=== PATIENT | female | born 1950 | race Caucasian/White ===

== ENCOUNTER 2021-05-23 00:09 | Observation (INO) | payer MEDICARE ==
[~2021-05-23] VITALS: Ht 152.4 cm; Wt 45.5 kg
--- OUTSIDE RECORDS SUMMARY | 2021-05-23 00:12 | XMS ---
PreManage Notification: GALEN CHO Security Order Entry Administrator Events No recent Security Events currently on file [facility] There are no care providers on record at this time. Pedro has no Care Guidelines for this patient. [place] VISIT COUNT (12 MO.) 1 TERESA Jeff TOTAL 1 NOTE: Visits indicate total known visits. ED/UCC VISIT TRACKING (12 MO.) 05/23/2021 00:10 TERESA [facility] [place] TYPE: Emergency COMPLAINT: - BLOOD IN STOOL INPATIENT VISIT TRACKING (12 MO.) No inpatient visits to display in this time frame [email or web address]
[2021-05-23] MEDS ORDERED: ZOLPIDEM TARTRA10 MG PO (00:44)
--- NOTE | 2021-05-23 07:05 | NUR ---
[facility] pt able to ambulate from strcher to bed with minimal asistance. vss completed. admission completed. iv infusing per order. discussed plan of care with pt, all questions answered. pt on tele #9, mouth swabs provided. call light in reach.
--- NOTE | 2021-05-23 07:35 | NUR ---
Report received from Diana CARCAMO and Meghan CARCAMO. Pt resting in bed, awakens to voice, IVF infusing WNL. Pt states no needs at this time,no c/o pain. Will continue plan of care.
--- NOTE | 2021-05-23 08:12 | NUR ---
PT AWAKE IN ROOM. PT IS INDEPENDENT TO GET TO THE BATHROOM. WARM CLOTH GIVEN FOR FACE. WHITE BOARD UPDATED. CALL LIGHT WITHIN REACH. NO FURTHER NEEDS AT THIS TIME.
--- NOTE | 2021-05-23 09:23 | NUR ---
PT RESTING IN BED. PT SAYS APROX EVERY 30-40 SHE HAS "PAIN IN HER LOWER GUT THAT LASTS ABOUT 2 MINUTES." PT ALSO SAYS HER HANDS ARE SWELLING. DONA ZAMUDIO NOTIFIED. CALL LIGHT WITHIN REACH. NO FURTHER NEEDS AT THIS TIME.
--- NOTE | 2021-05-23 09:30 | NUR ---
It was my pleasure to meet with Brittany this morning and discuss her patient care and plan of care. Brittany shared with me that she is very happy with her care here at the hospital. She was admitted through the emergency department, and said that her care was "really good" in the ED. Brittany does state that she is having some intermittent pain adding that "it only lasts a couple of minutes so I am not taking pain meds." She does state that the nurses have offered pain medications but at this time she is refusing per her admission. She feels like she can "just work through it." Brittany also asked about her plan of care, she is currently NPO. I did explain to her that Dr. Mckinley had been consulted per our rounding report this morning. I also explained that we cannot at this time tell her when Dr. Mckinley will be able to come in and consult but that he was aware of her as was Dr. Chavez per our rounding report this morning. Brittany expressed appreciation for the information shared and denied other questions or concerns at this time. Again, she said that she was "very happy" with her care.
--- NOTE | 2021-05-23 09:38 | NUR ---
PATIENT UP TO BATHROOM TO BM, SMALL NIA RED LOOS STOOL NOTED. PATIENT INDICATED THAT SHE HAD 8/10 PAIN CRAMPS WITH BM THAT RESOLVED AFTER BM. PATIENT DENIED WANTING MORPHINE FOR PAIN.
--- NOTE | 2021-05-23 09:55 | NUR ---
Orders for stool sample to be collected, hat in toilet and sign in room, pt notified. IVF infusing WNL. Pt states that she has not slept in >24 hours, blinds closed and allowed to rest undisturbed at this time.
--- NOTE | 2021-05-23 12:05 | NUR ---
Medications administered, patient ambulates SBA to bathroom for void, no stool at this time, small drops of michelle red blood noted in toilet. IVF infusing WNL. She reports no pain or nausea at this time, intermittent ABD cramping.
--- NOTE | 2021-05-23 13:38 | NUR ---
STAFF INFORMED THAT PT DID NOT WANT TO BE DISTURBED AT THIS TIME. WILL FOLLOW
--- NOTE | 2021-05-23 13:50 | NUR ---
PT AWAKE IN BED. BLINDS OPENED, PT IS INDEPENDENT TO THE BATHROOM AND BACK TO BED. THIS STOVE REFINISHER GOT PT GREEN JELLO AND VEGGIE BROTH. CALL LIGHT WITHIN REACH. NO FURTHER NEEDS AT THIS TIME.
--- NOTE | 2021-05-23 13:54 | NUR ---
Pt tolerating clear liquid diet. Saline locked. Heat pack provided for ABD cramps
[2021-05-23] MEDS ORDERED: CALCIUM 500 +1 EAC4 NG (15:00)
[2021-05-23] MEDS ORDERED: DAILY VALUE1 EACH PO (15:00)
[2021-05-23] MEDS ORDERED: SUDOGEST30 MG PO (15:00)
[2021-05-23] MEDS ORDERED: VITAMIN C500 M1 PO (15:01)
--- NOTE | 2021-05-23 15:01 | NUR ---
MED REC COMPLETE
--- NOTE | 2021-05-23 17:42 | NUR ---
Attempted to see pt x2. Note on door, stating no visitor except for Will see pt tomorrow.
--- NOTE | 2021-05-23 18:05 | NUR ---
PT AWAKE IN BED WITH AT BEDSIDE. THIS CADDY BROUGHT PT JELLO. PT REFUSED SCD'S. RN LIZZ NOTIFIED. NO FURTHER NEEDS AT THIS TIME.
--- NOTE | 2021-05-23 19:00 | NUR ---
IN TO SEE PT. PT ALERT AND AWAKE, AT BEDSIDE. PT UPDATED ON PLAN OF CARE. NO NEEDS OR REQUEST. CALL LIGHT IN REACH.
--- NOTE | 2021-05-23 21:47 | NUR ---
IN TO SEE PT, MEDICATIONS AND ASSESSMENT DSDUE. PT ALERT AND ORIENTED X 3. PT REPORTS 5/10 BARNES, GIVEN PRN 650MG TYLENOL PER ORDER. I AND O'S COMPLETED. VS COMPLETED. UPDATED ON PLAN OF CARE. NO OTHER NEEDS OR REQUEST AT THIS TIME. PT UP TO USE RESTROOM AND BACK TO BED. NORMAL SINUS RHYTHM NOTED HR 80. NO SOB NOTED. DENIES NAUSEA, VOMITING AND DIARHHEA. CALL LIGHT IN REACH.
--- NOTE | 2021-05-23 23:14 | NUR ---
IN TO SEE PT. IV FLUIDS STARTED. BOWEL PREP STARTED. CONSENT REVIEWED WITH PT AND COMPLETED. NO ADDITIONAL QUESTIONS. BSC PLACED NEXT TO BED. PT REPORTS PAIN 5/10 TO HEAD. PT EDUCATION PROVIDED REGARDING BOWEL PREP, PT VERBALIZED UNDERSTANDING. NO OTHER MEEDS OR REQUESTS AT THIS TIME. CALL LIGHT IN REACH.
--- NOTE | 2021-05-24 00:53 | NUR ---
ASSUMED CARE OF PATIENT. [place] [facility] [place] WAS ABLE TO VOID. PATIENT HAS TAKEN 1/2 OF ORDERED BOWEL PREP. NO BM NOTED AT THIS TIME. PATIENT IS IN BED RESTING. PATIENT DENIES ANY NEEDS. CALL LIGHT IN REACH. IV INFUSING PER ORDER.
--- NOTE | 2021-05-24 01:24 | NUR ---
PATIENT ASSISTED TO THE BSC. PATIENT ABLE TO HAVE LOOSE BM. STOOL SAMPLE SENT TO THE PER ORDER. PATIENT ALSO ABLE TO VOID. PATIENT IS BACK IN BED RESTING. PATIENT DENIES ANY FURTHER NEEDS. CALL LIGHT IN REACH.
--- NOTE | 2021-05-24 02:16 | NUR ---
PATIENT ASSISTED TO THE BSC. PATIENT WAS ABLE TO HAVE LOOSE BM WITH SEDIMENT NOTED, AND IS STILL DARK IN COLOR. PATIENT IS BACK IN BED RESTING. PATIENT HAD EMESIS. PATIENT GIVEN PRN ZOFRAN PER ORDER. PATIENT PROVIDED WITH ICE PACK FOR NECK AND COOL RAG FOR FOREHEAD. PATIENT DENIES ANY FURTHER NEEDS. CALL LIGHT IN REACH.
--- NOTE | 2021-05-24 02:50 | NUR ---
ANSWERED CALL LIGHT. EMPTIED THE BUCKET. DARK WATERY STOOL WITH SOME PARTICLES.
--- NOTE | 2021-05-24 04:12 | NUR ---
PATIENTS SCHEDULED MEDICATIONS GIVEN PER ORDER. PATIENT CONTINUES TO DRINK BOWEL PREP. PATIENT REPORTS A HEADACHE AND THE PAIN IS 5/10. PATIENT GIVEN PRN TYLENOL PER ORDER. PATIENT UP TO BSC. PATIENT WILL CALL AFTER USE OF THE COMMODE. NO FURTHER NEEDS NOTED. CALL LIGHT IN REACH.
--- NOTE | 2021-05-24 05:04 | NUR ---
PATIENT UP TO THE BSC. PATIENT HAD LOOSE BM. PATIENTS BM IS MANAGER INSURANCE IN COLOR SEDIMENT NOTED. PATIENT IS BACK IN BED RESTING. PATIENT REPORTS AN IMPROVEMENT IN HEADACHE. SCHEDULED MEDICATION GIVEN PER ORDER. VITALS TAKEN AND RECORDED. INTAKE AND OUTPUT RECORDED. PATIENT DENIES ANY NEEDS. CALL LIGHT IN REACH.
--- NOTE | 2021-05-24 06:21 | NUR ---
PATIENT UP TO THE BR. PATIENT HAD LOOSE LIQUID BOWEL. BOWEL IS LIGHT BROWN, AND SCANT SEDIMENT NOTED. PATIENT IS BACK IN BED RESTING. PATIENT DENIES ANY NEEDS. CALL LIGHT IN REAC.H
--- NOTE | 2021-05-24 07:37 | NUR ---
BEDSIDE REPORT FROM DEMARCUS CARCAMO, PT ALERT AND ORIETNED, SHE WAS JUST BACK TO BED AFTER BM, NO REQUESTS, REAL ESTATE ASSESSOR IN TO REPORT SURGERY CALL TO INFORM THAT THEY WILL COME TO GET PT AT 0800. PT CALLING HER .
--- NOTE | 2021-05-24 09:52 | NUR ---
05/24/21 0952 Bev Goodwin 0927 PT ARRIVED IN PACU SLEEPY. ABD SOFT. 0945 TAKING SIPS OF WATER, THEN FALLS BACK TO SLEEP. 0950 DR AT BEDSIDE. ALL QUESTIONS ANSWERED.
--- NOTE | 2021-05-24 10:08 | CONS ---
[facility] [address], [place] [address] Signed DATE OF CONSULTATION: 05/23/2021 REQUESTING PHYSICIAN: Armando Chavez MD. CURRENT HOSPITALIST PHYSICIAN: Dr. Fischer. PROBLEM: Bloody diarrhea, inflammatory changes extending from splenic flexure to rectum on CT. HISTORY OF PRESENT ILLNESS: This 70-year-old white woman was admitted to the hospital at about midnight last night having presented with complaints of significant rectal bleeding and left-sided abdominal cramping pain. A CT scan was performed which showed findings suggestive of colitis in the left colon. Her admission was undertaken by the hospitalist, Dr. Chavez. C difficile cultures were hoping to be obtained but have not yet been obtained. She has not had profound blood per rectum. Given the findings, concern was maintained for possible inflammatory bowel disease and she was started on steroids, currently taking prednisone 40 mg p.o. daily. She does not have any IV fluids running at this time. She has been allowed to have liquids. She has had no nausea or vomiting. She denies any further serious diarrhea problems. LABORATORY STUDIES: Her admission lab study showed a hematocrit of 36.6, subsequently 37.9 and originally 38.7. Her platelet count is normal at 203,000. Electrolytes normal. Glucose 119, globulin elevated at 3.7. Her coag studies are normal with an INR of 1.03. PTT of 26.4. Urinalysis essentially normal and COVID serology is uncertain at this time. She is negative for coronavirus inflammatory type B or A and RSV. REVIEW OF SYSTEMS: She has far less abdominal pain essentially and has resolved. She has had no further bleeding. She denies any shortness of breath or chest pain. PHYSICAL EXAMINATION: GENERAL: Pleasant white woman who looks to be in no acute distress. HEENT: Mucous membranes are quite dry, however. Trachea is midline. CHEST: Clear. HEART: Regular without murmur. ABDOMEN: Scaphoid and nondistended. Palpation throughout shows no sign of focal tenderness, mass or ascites. Electronically Signed By: PEPE MOSS MD 05/24/21 1008 PATIENT NAME: GALEN CHO CONSULTATION DATE OF : 54 REPORT #: [id number] PHYSICIAN: PEPE MOSS MD PCP: ANY LANZA MD REPORT IS CONFIDENTIAL AND NOT TO BE RELEASED WITHOUT AUTHORIZATION [facility] [address] [place], [place] [address] Signed EXTREMITIES: Show no clubbing, cyanosis, or edema. VITAL SIGNS: Show temperature is 97.8, pulse was 87, blood pressure 111/68, O2 saturation is 97% on room air. ASSESSMENT: I reviewed the CT scan as well as the radiology interpretation. Most likely this represents ischemic colitis based on its distribution and so on. I would recommend a bowel prep tonight of MiraLAX and colonoscopy tomorrow. I am mindful that inflammatory bowel disease may be the underlying source of her problem though I think it is unlikely; similarly, the possibility of C difficile or other abnormalities may be present, but I would not expect C difficile colitis to be restricted to the splenic flexure and left colon proper. The risks of bleeding, infection, and perforation related to colonoscopy was discussed with her. She understands and wished to proceed. It is notable that she underwent colonoscopy by me at least 10 years ago based on what we can remember together. Review of old record so far show that I did perform a colonoscopy on her on January 10, 2007, 14 years ago, which confirmed only a cystocele and a rectocele. The patient does describe repair of the cystocele and rectocele in the past, although she does not feel normal per se. She is free of incontinence. MD YI Bettencourt/DOYLEL /[id number] cc: MD Ariane Yuen MD Dr. Deborah Woodbury Kelly Dean Pridgen, MD Electronically Signed By: PEPE MOSS MD 05/24/21 1008 PATIENT NAME: GALEN CHO CONSULTATION DATE OF : 54 REPORT #: [id number] PHYSICIAN: PEPE MOSS MD PCP: ANY LANZA MD REPORT IS CONFIDENTIAL AND NOT TO BE RELEASED WITHOUT AUTHORIZATION [address] [address] Signed Copies: ARMANDO CHAVEZ CYNTHIA MD PRIDGEN, KELLY DEAN MD ~ Electronically Signed By: PEPE MOSS MD 05/24/21 1008 PATIENT NAME: GALEN CHO GENEVIEVE CONSULTATION DATE OF : 54 REPORT #: [id number] PHYSICIAN: PEPE MOSS MD PCP: ANY LANZA MD REPORT IS CONFIDENTIAL AND NOT TO BE RELEASED WITHOUT AUTHORIZATION
--- NOTE | 2021-05-24 10:25 | NUR ---
PT BACK TO PROCEDURE TO ROOM 112 AT THIS TIME, BEDSIDE REPORT FROM ANA CARCAMOMOLD ENGRAVER DEPT., PT ALERT AND ORIENTED NO CONCERNS, SHE VERBALIZED NO PAIN, NO NAUSEA. SHE WANTS TO DISCHARGE JENNIE.
--- NOTE | 2021-05-24 10:45 | NUR ---
Spoke with pt and she states she lives in a 1 story home with her spouse. She denies needs and denies needing help. Spouse will help her if needed. Pt states she is feeling much better. She drives and spouse will grocery shop and cook for her. Home with spouse today.
--- NOTE | 2021-05-24 11:21 | NUR ---
UPDATED ON PT RETURN FROM PROCEDURE, PT VERBALIZED WANTING TO GO HOME JENNIE, TO REVIEW CHART.
--- NOTE | 2021-05-24 11:28 | NUR ---
PT UP IN HER ROOM INDEPENDENTLY DRESSING, SHE HAS TAKEN TELEMETRY OFF, SHE SAID CAME IN AND INFORMED HER THAT SHE WILL PLACE DISCHARGE ORDERS.
--- NOTE | 2021-05-24 11:51 | NUR ---
PT ALERT AND ORIETNED SITTING UP IN BED, ANNIE BLOCKER AND CUTTER CONTACT LENS AT BEDSIDE, FLAGYL PO GIVEN PER ORDER AT THIS TIME. PT REPORTS NO PAIN OR NAUSEA. UPDATED PHARMACY PER PT REQUEST TO [facility]. NO OTHER CONCERNS OR REQUESTS AT THIS TIME.
[2021-05-24] MEDS ORDERED: METRONIDAZOLE250 MG PO (11:52)
--- NOTE | 2021-05-24 12:20 | NUR ---
PT READY FOR DISCHRAGE. PT DRESSED, NO ASSISTANCE NEEDED. PT REPORTS SHE WOULD LIKE TO GO HOME SOON POSSIBLE. THIS RN TO ROOM. VITAL SIGNS STABLE. DISCHARGE INSTRUTIONS REVIEWED WITH PT. PT VERBALIZES UNDERSTANDING OF INSTRCUTIONS, FOLLOW UP, MEDICAITONS AND LOW FIBER DIET AND STATES HER QUESTIONS HAVE BEEN ANSWERED. PT TRANSFERES SELF TO WHEELCHAIR AND IS WHEELED FROM CLINIC BY FAST FOOD WORKER. NO ADDITIONAL REQUESTS OR COMPLAINTS. ALL BELONGINGS WITH PT.
--- NOTE | 2021-05-26 15:18 | PATH ---
[facility] [address] [place], [place] [address] Signed SPECIMEN(S): A ASCENDING/RIGHT COLON BIOPSY SPECIMEN(S): B SPLENIC FLEXURE BIOPSY SPECIMEN(S): C COLON BIOPSY AT 30 CM SPECIMEN(S): D COLON POLYP AT 30 CM SPECIMEN SOURCE: A. ASCENDING/RIGHT COLON BIOPSY B. SPLENIC FLEXURE BIOPSY C. COLON BIOPSY AT 30 CM D. COLON POLYP AT 30 CM CLINICAL HISTORY: Ischemic colitis FINAL PATHOLOGIC DIAGNOSIS: A. Ascending/right colon biopsy: - Benign colonic mucosa, negative for specific diagnostic abnormality. B. Splenic flexure biopsy: - Benign colonic mucosa with crypt atrophy, lamina propria fibrosis, and chronic inflammation (see Comment). - Negative for dysplasia. C. Colon biopsy at 30 cm: - Benign colonic mucosa, negative for specific diagnostic abnormality. D. Colon polyp at 30 cm: - Hyperplastic polyp (one fragment). COMMENT (For Part B): The histologic features are compatible with and support the history of ischemic colitis. JVR:llc:[id number] MICROSCOPIC EXAMINATION: Histologic sections of all submitted blocks are examined by light microscopy. These findings, together with the gross examination, support the pathologic diagnosis. GROSS DESCRIPTION: Four specimens are received in four containers, labeled "VH." A. The specimen, labeled "VH, 1," and designated on the requisition "ascending/right biopsy," is received in formalin and consists of three macario soft tissue fragments that measure 0.2 to 0.4 cm in greatest dimension. The specimen is entirely submitted in cassette (A1). B. The specimen, labeled "VH, 2," and designated on the requisition "splenic PATIENT NAME: GALEN CHO PATHOLOGY DATE OF : 54 REPORT #: [id number] PHYSICIAN: EMILIE HORTA PCP: ANY LANZA MD REPORT IS CONFIDENTIAL AND NOT TO BE RELEASED WITHOUT AUTHORIZATION [facility] [address] [place], [place] [address] Signed flexure biopsy," is received in formalin and consists of six macario soft tissue fragments that measure 0.4 up to 0.5 cm in greatest dimension. The specimen is entirely submitted in cassette (B1). C. The specimen, labeled "VH, 3," and designated on the requisition "colon biopsy 30 cm," is received in formalin and consists of two macario soft tissue fragments that measure 0.3 and 0.8 cm in greatest dimension. The specimen is entirely submitted in cassette (C1). D. The specimen, labeled "VH, 4," and designated on the requisition "colon polypectomy 30 cm," is received in formalin and consists of one macario soft tissue fragment that measures 0.3 cm in greatest dimension. The specimen is entirely submitted in cassette (D1). AI (under the direct supervision of a pathologist) The Gross Description was prepared using a voice recognition system. The report was reviewed for accuracy; however, sound-alike word errors, addition and/or deletions may occur. If there is any question about this report, please contact Client Services. PERFORMING LABORATORY: The technical component was performed by [facility], [address] [place] [id number] (Tomb Maker Helper: Génesis Ponce MD; CLIA# [id number]). Professional interpretation was performed by [facility] [place] [address]. Diagnostician: Jayro Mcbride MD Pathologist Electronically Signed 05/26/2021 Copies: ~ PATIENT NAME: GALEN CHO PATHOLOGY DATE OF : 54 REPORT #: [id number] PHYSICIAN: EMILIE HORTA PCP: ANY LANZA MD REPORT IS CONFIDENTIAL AND NOT TO BE RELEASED WITHOUT AUTHORIZATION
--- NOTE | 2021-05-27 15:08 | OR ---
[facility] [address] [place], [place] [address] Signed DATE OF OPERATION: 05/24/2021 SURGEON: Pepe Moss MD PREOPERATIVE DIAGNOSES: 1. Hematochezia. 2. CT scan finding of inflammatory change of left colon extending from splenic flexure to the rectum. POSTOPERATIVE DIAGNOSES: 1. Ischemic colitis, splenic flexure. 2. Small polyp at 40 cm, excised. 3. Diverticular changes sigmoid. PROCEDURES: 1. Total colonoscopy to the cecum with multiple biopsies. 2. Cold morcellation polypectomy x1. ANESTHESIA: Intravenous sedation, fentanyl 150 mcg and Versed 5 mg. INDICATION: This 71-year-old white woman is a patient of Dr. Lanza and was admitted by Dr. Chavez and subsequently care assumed by Dr. Fischer for hematochezia. She was admitted on May 23. She has been given intravenous fluids and a CT scan was performed which showed thickening of the colon from the splenic flexure extending to the rectum. My review of the films shows it is highly probable this represents ischemic colitis given her history. She has undergone a bowel prep and is now to undergo colonoscopy. She understands the risks of bleeding, infection, and perforation. FINDINGS: The prep was good. Complete colonoscopy was undertaken to the cecum. The source of her bleeding was indeed ischemic colitis primarily in the splenic flexure. I would call the disease mild to moderate at most. There were scattered diverticula of the sigmoid colon and a small polyp at 40 cm as well. DESCRIPTION OF PROCEDURE: The patient was brought to the endoscopy suite and placed in lateral decubitus position, given intravenous sedation to the point of slurred speech and nystagmus. Digital rectal examination was normal. Electronically Signed By: PEPE MOSS MD 05/27/21 1508 PATIENT NAME: GALEN CHO OPERATIVE REPORT DATE OF : 54 REPORT #: [id number] PHYSICIAN: PEPE MOSS MD PCP: MADISON LANZA MD REPORT IS CONFIDENTIAL AND NOT TO BE RELEASED WITHOUT AUTHORIZATION [facility] [address] [place], [place] [address] Signed An Olympus video colonoscope was passed in the rectum and manipulated throughout the colon. The sigmoid and most of the left colon appeared normal, but the splenic flexure was quite markedly abnormal with ischemic colitis type changes but no sign of severe necrosis proper. The scope was passed beyond this to the transverse colon which was entirely normal. Scope was ultimately passed to the cecum, still normal. Biopsies were taken of the right colon. Scope was withdrawn and in the area of the splenic flexure multiple biopsies obtained. Photographs were taken too of course. The scope was withdrawn and approximately 40 to 60 cm of colon was normal again. Biopsies were taken there and a small polyp was also noted, it was excised as well with cold morcellation technique. Diverticula were noted in the sigmoid. The rectum was normal. The scope was removed and the patient was taken to recovery room in good condition. CONCLUDING DIAGNOSIS: Hematochezia related to ischemic colitis, mild to moderate only. PLAN: Recommend low fiber diet. We will discontinue steroids in this setting. Low fiber diet would be maintained for four weeks. I will see her back in the office in six weeks and we will consider for surveillance colonoscopy thereafter depending on her course. Pepe Moss MD JM/MODL /[id number] cc: MD Dr. Madison Mcintosh MD Copies: HARRIET FISCHER MD Electronically Signed By: PEPE MOSS MD 05/27/21 1508 PATIENT NAME: GALEN CHO GENEVIEVE OPERATIVE REPORT DATE OF : 54 REPORT #: [id number] PHYSICIAN: PEPE MOSS MD PCP: MADISON LANZA MD REPORT IS CONFIDENTIAL AND NOT TO BE RELEASED WITHOUT AUTHORIZATION [facility] [address] [place] [address] Signed ARMANDO CHAVEZ Electronically Signed By: PEPE MOSS MD 05/27/21 1508 PATIENT NAME: GALEN CHO OPERATIVE REPORT DATE OF : 54 REPORT #: [id number] PHYSICIAN: PEPE MOSS MD PCP: MADISON LANZA MD REPORT IS CONFIDENTIAL AND NOT TO BE RELEASED WITHOUT AUTHORIZATION
== END 2021-05-24 12:20 | disposition home or self-care (01) ==
LOC: ED 00:09 → MS 00:11
PROVIDERS: Surgery; ADMIT Student in an Organized Health Care Education/Training Program; ATTEND Student in an Organized Health Care Education/Training Program
PROC: 0DBE8ZX Excision of Large Intestine, Via Natural or Artificial Opening Endoscopic, Diagnostic (ICD-10-PCS; 2021-05-24)
PROC: 0DBL8ZX Excision of Transverse Colon, Via Natural or Artificial Opening Endoscopic, Diagnostic (ICD-10-PCS; 2021-05-24)
PROC: 0DBK8ZX Excision of Ascending Colon, Via Natural or Artificial Opening Endoscopic, Diagnostic (ICD-10-PCS; principal; 2021-05-24 09:00)
DX: K55.039 Acute (reversible) ischemia of large intestine, extent unspecified (principal); K55.1 Chronic vascular disorders of intestine; K63.5 Polyp of colon; K57.30 Diverticulosis of large intestine without perforation or abscess without bleeding; Z88.5 Allergy status to narcotic agent; Z88.8 Allergy status to other drugs, medicaments and biological substances; K76.0 Fatty (change of) liver, not elsewhere classified; R91.1 Solitary pulmonary nodule; Z20.822 Contact with and (suspected) exposure to COVID-19
CPT/HCPCS: 74177; 80048; 80053; 81001; 83690; 85025; 85610; 85730; 86850; 86900; 86901; 96366; 96375; 96376; 99153; 99285-25; C9803; G0378; G0500; J0696; J2250; J2405; J3010; J7030; J7121; J7512; Q9967; U0003

== ENCOUNTER 2025-03-12 11:19 | Emergency (ER) | payer MEDICARE, OTHER ==
[~2025-03-12] VITALS: Ht 152.4 cm; Wt 59.9 kg
[~2025-03-12 11:19] MED LIST: CALCIUM 500 +1 EAC4 NG; DAILY VALUE1 EACH PO; METRONIDAZOLE250 MG PO; SUDOGEST30 MG PO; VITAMIN C500 M1 PO; ZOLPIDEM TARTRA10 MG PO
--- OUTSIDE RECORDS SUMMARY | 2025-03-12 11:28 | XMS ---
PreManage Notification: GALEN CHO Security Yoke Presser Events No recent Security Events currently on file CRITERIA MET - [facility] - 2 Visits in 30 Days CARE PROVIDERS There are no care providers on record at this time. Pedro has no Care Guidelines for this patient. [place] VISIT COUNT (12 MO.) [address] [facility] TOTAL 2 NOTE: Visits indicate total known visits. ED/UCC VISIT TRACKING (12 MO.) 03/12/2025 11:19 [facility]A [facility] [place] TYPE: Emergency COMPLAINT: - DIZZINESS 02/17/2025 17:35 [facility] TYPE: Emergency DIAGNOSES: - Non-ST elevation (NSTEMI) myocardial infarction - CHEST PAIN INPATIENT VISIT TRACKING (12 MO.) 02/17/2025 22:23 Heathjerrod Omi TianArlene Gerard MD TYPE: Medical Surgical COMPLAINT: - NSTEMI DIAGNOSES: 0. Acute myocardial infarction, unspecified 0. Chest pain, unspecified 1. Acute myocardial infarction, unspecified 2. Acute respiratory failure with hypoxia 3. Cardiogenic shock 4. Acute posthemorrhagic anemia 5. Hyperlipidemia, unspecified 6. Rheumatoid arthritis, unspecified 7. Nonrheumatic aortic (valve) stenosis 8. Hypertensive heart disease with heart failure 9. Insomnia, unspecified 9. Pure hypercholesterolemia, unspecified 10. Do not resuscitate 10. Insomnia, unspecified 11. Do not resuscitate 11. Nausea 12. Nausea with vomiting, unspecified 13. Psychophysiologic insomnia [email or web address]
[2025-03-12] MEDS ORDERED: IBLOOD GLUCOSE TEST STRIP 1 EA TEST XX ONE (11:45)
[2025-03-12] MEDS ORDERED: ASPIRIN 81 MG CHEW PO ONE (11:45)
[2025-03-12] MEDS ORDERED: ATORVASTATIN CA80 MG PO (11:53)
[2025-03-12] MEDS ORDERED: NITROGLYCERIN0.4 MG SL (11:53)
[2025-03-12] MEDS ORDERED: LISINOPRIL5 MG PO (11:53)
[2025-03-12] MEDS ORDERED: BRILINTA90 MG PO (11:54)
[2025-03-12] MEDS ORDERED: BAYER CHEWABLE81 MG PO (11:55)
[2025-03-12] MEDS ORDERED: TOPROL XL50 MG PO (11:55)
[2025-03-12 11:58] LABS: BASOPHILS 0.3 % (0.1-1.2); EOSINOPHILS 2.9 % (0.7-5.8); LYMPHOCYTES 10.6 % (19.3-51.7); MCH 29.5 PG (25.6-32.2); MCHC 32.0 g/dL (32.2-35.5); MCV 92.1 fL (79.4-94.8); MONOCYTES 8.8 % (4.7-12.5); NEUTROPHILS 77.2 % (34.0-71.1); RBC 3.56 M/uL (3.93-5.22)
[2025-03-12 12:08] LABS: INR 1.13 (0.80-1.30); PROTIME 13.8 Sec (11.2-14.2)
[2025-03-12 12:16] LABS: ALT (SGPT) 27.0 U/L (14-59); AST (SGOT) 19.0 U/L (15-37); GLOMERULAR FILTRATION RATE,EST 58.0 mL/min (>60); PROTEIN, TOTAL 7.3 g/dL (6.4-8.2); UREA NITROGEN 20.0 mg/dL (7-18)
[2025-03-12 13:46] VITALS: BP 118/65
--- NOTE | 2025-03-13 12:35 | EKG ---
[facility] [address] [facility] [place], [place] [address] Signed Normal sinus rhythm Normal ECG No previous ECGs available Confirmed by SAVANNA BUCK MD ([id number]) on 03/13/2025 12:35:16 PM Electronically Signed By: SAVANNA BUCK 03/13/25 1235 PATIENT NAME: GALEN CHO Electrocardiogram DATE OF : 54 PHYSICIAN: SAVANNA BUCK REPORT #: [id number] REPORT IS CONFIDENTIAL AND NOT TO BE RELEASED WITHOUT AUTHORIZATION
== END 2025-03-12 13:45 | disposition home or self-care (01) ==
LOC: ED 11:19
PROVIDERS: Emergency Medicine
DX: R55 Syncope and collapse (principal); I25.2 Old myocardial infarction; Z79.899 Other long term (current) drug therapy; Z88.5 Allergy status to narcotic agent; Z88.8 Allergy status to other drugs, medicaments and biological substances; Z79.82 Long term (current) use of aspirin
CPT/HCPCS: 36415; 71045; 80053; 83735; 84484; 85025; 85610; 93005; 93010; 99285-25

== ENCOUNTER 2025-03-25 18:27 | Emergency (ER) | payer MEDICARE, OTHER ==
[~2025-03-25] VITALS: Ht 152.4 cm; Wt 60.2 kg
[~2025-03-25 18:27] MED LIST changes: +ATORVASTATIN CA80 MG PO; +BAYER CHEWABLE81 MG PO; +BRILINTA90 MG PO; +LISINOPRIL5 MG PO; +NITROGLYCERIN0.4 MG SL; +TOPROL XL50 MG PO
--- OUTSIDE RECORDS SUMMARY | 2025-03-25 18:34 | XMS ---
PreManage Notification: GALEN CHO Security Check Pilot Events No recent Security Events currently on file CRITERIA MET - [facility] - 2 Visits in 30 Days CARE PROVIDERS There are no care providers on record at this time. Pedro has no Care Guidelines for this patient. [place] VISIT COUNT (12 MO.) [address] TOTAL 3 NOTE: Visits indicate total known visits. ED/C VISIT TRACKING (12 MO.) 03/25/2025 18:28 [facility] [place] TYPE: Emergency COMPLAINT: - CHEST PAIN, SOB 03/12/2025 11:19 [facility] [place] TYPE: Emergency COMPLAINT: - DIZZINESS DIAGNOSES: - Allergy status to narcotic agent - Allergy status to other drugs, medicaments and biological substances - terminal carman (current) use of aspirin - Old myocardial infarction - Other chest pain - Other terminal carman (current) drug therapy - Syncope and collapse 02/17/2025 17:[address] [facility] [place] TYPE: Emergency DIAGNOSES: - Non-ST elevation (NSTEMI) myocardial infarction - CHEST PAIN INPATIENT VISIT TRACKING (12 MO.) 02/17/2025 22:23 Bertha CAMPOS TYPE: Medical Surgical COMPLAINT: - NSTEMI DIAGNOSES: [...] Nausea with vomiting, unspecified 13. Psychophysiologic insomnia [email or web address]
[2025-03-25] MEDS ORDERED: ASPIRIN 81 MG CHEW PO ONE (18:45)
[2025-03-25] MEDS ORDERED: NITROGLYCERIN 0.4 MG SUBL SL PRN (18:45)
[2025-03-25 18:50] LABS: BASOPHILS 0.2 % (0.1-1.2); EOSINOPHILS 3.0 % (0.7-5.8); LYMPHOCYTES 16.5 % (19.3-51.7); MCH 29.5 PG (25.6-32.2); MCHC 32.4 g/dL (32.2-35.5); MCV 91.2 fL (79.4-94.8); MONOCYTES 9.7 % (4.7-12.5); NEUTROPHILS 70.2 % (34.0-71.1); RBC 3.42 M/uL (3.93-5.22)
[2025-03-25 19:02] LABS: INR 1.05 (0.80-1.30); PROTIME 13.0 Sec (11.2-14.2)
[2025-03-25 19:09] LABS: ALT (SGPT) 23.0 U/L (14-59); AST (SGOT) 16.0 U/L (15-37); GLOMERULAR FILTRATION RATE,EST 58.0 mL/min (>60); PROTEIN, TOTAL 7.3 g/dL (6.4-8.2); UREA NITROGEN 19.0 mg/dL (7-18)
[2025-03-25 21:06] VITALS: BP 116/73
[2025-03-25] MEDS ORDERED: METOPROLOL TART25 MG PO ×2 (21:24)
--- NOTE | 2025-03-26 13:20 | EKG ---
[facility] [address] [place], [place] [address] Signed Normal sinus rhythm Normal ECG When compared with ECG of 12-MAR-2025 11:48, No significant change was found Confirmed by SAVANNA BUCK MD ([id number]) on 03/26/2025 1:20:01 PM Electronically Signed By: SAVANNA BUCK 03/26/25 1320 PATIENT NAME: GALEN CHO Electrocardiogram DATE OF : 54 PHYSICIAN: SAVANNA BUCK REPORT #: [id number] REPORT IS CONFIDENTIAL AND NOT TO BE RELEASED WITHOUT AUTHORIZATION
== END 2025-03-25 21:31 | disposition home or self-care (01) ==
LOC: ED 18:27
PROVIDERS: Emergency Medicine
DX: R07.89 Other chest pain (principal); I25.2 Old myocardial infarction; Z88.5 Allergy status to narcotic agent; Z88.8 Allergy status to other drugs, medicaments and biological substances; Z79.82 Long term (current) use of aspirin; Z79.899 Other long term (current) drug therapy
CPT/HCPCS: 36415; 71045; 80053; 83735; 84484; 85025; 85610; 99285-25; A9270